=== PATIENT | male | born 1960 | race African-American/Black ===

== ENCOUNTER 2019-06-18 12:14 | Inpatient (IN) | payer BC ==
[2019-06-18 12:53] VITALS: BMI 24.1
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
[2019-06-18] MEDS ORDERED: hydrOXYzine PAMOATE 25 MG CAPSULE (FP) PO PRN (14:16)
[2019-06-18] MEDS ORDERED: chlordiazePOXIDE HCL 10 MG CAPSULE PO PRN (14:16)
[2019-06-18] MEDS ORDERED: BISMUTH SUBSALICYLATE 524 MG/30 ML UD PO PRN (14:16)
[2019-06-18] MEDS ORDERED: ACETAMINOPHEN 325 MG TABLET (FP) PO PRN ×2 (14:16)
[2019-06-18] MEDS ORDERED: MELATONIN 5 MG TABLETS PO PRN (14:16)
[2019-06-18] MEDS ORDERED: MAGNESIUM CITRATE 300 ML BOTTLE PO PRN (14:16)
[2019-06-18] MEDS ORDERED: IBUPROFEN 400 MG TABLET (FP) PO PRN (14:16)
[2019-06-18] MEDS ORDERED: MENTHOL/PHENOL 1 EACH UD MM PRN (14:16)
[2019-06-18] MEDS ORDERED: chlordiazePOXIDE HCL 25 MG CAPSULE PO ONE (14:16)
[2019-06-18] MEDS ORDERED: METHOCARBAMOL 500 MG TABLET PO PRN (14:16)
[2019-06-18] MEDS ORDERED: MAG HYDROX/AL HYDROX/SIMETH 30 ML UNIT-DOSE CUP PO PRN (14:16)
[2019-06-18] MEDS ORDERED: MAGNESIUM HYDROX 2400MG/30ML ORAL SUSPENSION 30 ML CUP PO PRN (14:16)
[2019-06-18 17:32] LABS: HEMATOCRIT 38.4 % (35.4-49); HEMOGLOBIN 12.6 GM/dL (11.7-16.9); MCH 32.8 pg (25.7-33.7); MCHC 32.8 g/dl (32.0-35.9); MEAN CELL VOLUME 99.9 fl (80-96); RBC 3.85 M/mm3 (4.00-5.60); RDW 13.1 % (11.9-15.9); WHITE BLOOD COUNT 4.5 K/mm3 (4.0-10.0)
[2019-06-18 17:37] LABS: ALBUMIN 3.5 g/dl (3.4-5.0); BILIRUBIN,TOTAL 1.4 mg/dL (0.2-1); CALCIUM 8.4 mg/dL (8.5-10.1); CREATININE 0.9 mg/dL (0.55-1.3); POTASSIUM 3.4 mmol/L (3.5-5.1); TOT PROT 7.5 g/dl (6.4-8.2)
[2019-06-18 18:23] LABS: MEAN PLT VOLUME 9.3 fl (7.5-11.1)
[2019-06-18 18:24] LABS: PLATELET COUNT 136 K/MM3 (134-434)
[2019-06-18] MEDS: THIAMINE HCL 100 MG TABLET (FP) PO SCH (22:31)
[2019-06-18] MEDS: chlordiazePOXIDE HCL 25 MG CAPSULE PO SCH (22:31)
[2019-06-19] MEDS: chlordiazePOXIDE HCL 25 MG CAPSULE PO SCH ×3 (05:57→22:19)
[2019-06-19] MEDS: PRENATAL VITAMINS W/ FOLIC ACID TABLET (FP) PO SCH (10:35)
--- NOTE | 2019-06-19 12:11 | PN ---
S CIWA - CIWA Score Nausea/Vomitin-No Nausea/No Vomiting Muscle Tremors: 3 Anxiety: 3 Agitation: 3 Paroxysmal Sweats: 2 Orientation: 0-Oriented Tacttile Disturbances: 0-None Auditory Disturbances: 0-None Visual Disturbances: 0-None Headache: 0-None Present CIWA-Ar Total Score: 11 BHS Progress Note (SOAP) Subjective: sweats mild shakes interrupted sleep irritable Objective: 06/19/19 12:10 Vital Signs Temperature 97.7 F 06/19/19 09:45 Pulse Rate 112 H 06/19/19 09:45 Respiratory Rate 19 06/19/19 09:45 Blood Pressure 124/92 06/19/19 09:45 O2 Sat by Pulse Oximetry (%) Laboratory Tests 06/18/19 06/18/19 06/18/19 14:25 14:25 14:25 WBC 4.5 RBC 3.85 L Hgb 12.6 Hct 38.4 MCV 99.9 H MCH 32.8 MCHC 32.8 RDW 13.1 Plt Count 136 MPV 9.3 Sodium 136 Potassium 3.4 L Chloride 104 Carbon Dioxide 22 Anion Gap 9 BUN 10.0 Creatinine 0.9 Est GFR (CKD-EPI)AfAm 108.73 Est GFR (CKD-EPI)NonAf 93.82 Random Glucose 186 H Calcium 8.4 L Total Bilirubin 1.4 H AST 369 H ALT 184 H Alkaline Phosphatase 87 Total Protein 7.5 Albumin 3.5 RPR Titer Nonreactive labs noted mild hypokalemia elevated liver enzymes repeat labs aaox3 ambulating no acute distress Assessment: 06/19/19 12:11 withdrawals Plan: continue detox increase fluids repeat labs kdur [id number] x one d/c tylenol
[2019-06-19] MEDS ORDERED: POTASSIUM CHLORIDE TABS 20 MEQ TABLET.ER (FP) PO ONE (12:30)
[2019-06-19] MEDS: THIAMINE HCL 100 MG TABLET (FP) PO SCH (22:19)
[2019-06-20] MEDS: chlordiazePOXIDE 5 MG CAPSULE PO SCH ×3 (05:17→21:35)
[2019-06-20] MEDS: PRENATAL VITAMINS W/ FOLIC ACID TABLET (FP) PO SCH (10:36)
--- NOTE | 2019-06-20 13:16 | PN ---
S CIWA - CIWA Score Nausea/Vomitin-Mild Nausea/No Vomiting Muscle Tremors: 3 Anxiety: 2 Agitation: 1-Slight > Activity Paroxysmal Sweats: 2 Orientation: 0-Oriented Tacttile Disturbances: 1-Very Mild Itch/Numbness Auditory Disturbances: 0-None Visual Disturbances: 0-None Headache: 0-None Present CIWA-Ar Total Score: 10 BHS Progress Note (SOAP) Subjective: shakes, but feeling better, , mild sweats Objective: 06/20/19 13:26 Vital Signs Temperature 97.8 F 06/20/19 13:10 Pulse Rate 109 H 06/20/19 13:10 Respiratory Rate 18 06/20/19 13:10 Blood Pressure 128/87 06/20/19 13:10 O2 Sat by Pulse Oximetry (%) Vital Signs Temperature 97.8 F 06/20/19 13:10 Pulse Rate 109 H 06/20/19 13:10 Respiratory Rate 18 06/20/19 13:10 Blood Pressure 128/87 06/20/19 13:10 O2 Sat by Pulse Oximetry (%) Laboratory Tests 06/18/19 06/18/19 06/18/19 14:25 14:25 14:25 WBC 4.5 RBC 3.85 L Hgb 12.6 Hct 38.4 MCV 99.9 H MCH 32.8 MCHC 32.8 RDW 13.1 Plt Count 136 MPV 9.3 Sodium 136 Potassium 3.4 L Chloride 104 Carbon Dioxide 22 Anion Gap 9 BUN 10.0 Creatinine 0.9 Est GFR (CKD-EPI)AfAm 108.73 Est GFR (CKD-EPI)NonAf 93.82 Random Glucose 186 H Calcium 8.4 L Total Bilirubin 1.4 H AST 369 H ALT 184 H Alkaline Phosphatase 87 Total Protein 7.5 Albumin 3.5 RPR Titer Nonreactive pt aox3 in nad ambulating slow shuffle but steady, states this is an improvement from DOA. mild tremor 06/20/19 13:29 Assessment: 06/20/19 13:28 withdrawal sx's Plan: cont. detox increase fluids
[2019-06-20] MEDS: THIAMINE HCL 100 MG TABLET (FP) PO SCH (21:35)
[2019-06-21] MEDS ORDERED: chlordiazePOXIDE HCL 10 MG CAPSULE PO PRN
[2019-06-21] MEDS: chlordiazePOXIDE HCL 10 MG CAPSULE PO SCH ×3 (06:14→21:34)
[2019-06-21 10:19] LABS: BASO % 0.4 % (0-2.0); EOS % 1.1 % (0-4.5); HEMATOCRIT 36.9 % (35.4-49); HEMOGLOBIN 12.5 GM/dL (11.7-16.9); LYMPH % 36.1 % (8-40); MCH 33.6 pg (25.7-33.7); MEAN CELL VOLUME 98.9 fl (80-96); MEAN PLT VOLUME 10.5 fl (7.5-11.1); MONO % 6.7 % (3.8-10.2); NEUT % 55.7 % (42.8-82.8); PLATELET COUNT 105 K/MM3 (134-434); RBC 3.73 M/mm3 (4.00-5.60); WHITE BLOOD COUNT 6.2 K/mm3 (4.0-10.0)
[2019-06-21 10:21] LABS: BILIRUBIN,TOTAL 0.4 mg/dL (0.2-1); BLOOD UREA NITROGEN 13.6 mg/dL (7-18); CALCIUM 8.6 mg/dL (8.5-10.1); CREATININE 0.7 mg/dL (0.55-1.3); POTASSIUM 3.8 mmol/L (3.5-5.1); TOT PROT 6.4 g/dl (6.4-8.2)
[2019-06-21] MEDS: PRENATAL VITAMINS W/ FOLIC ACID TABLET (FP) PO SCH (10:35)
--- NOTE | 2019-06-21 12:48 | PN ---
S CIWA - CIWA Score Nausea/Vomitin-No Nausea/No Vomiting Muscle Tremors: 2 Anxiety: 1-Mildly Anxious Agitation: 2 Paroxysmal Sweats: No Perspiration Orientation: 0-Oriented Tacttile Disturbances: 0-None Auditory Disturbances: 0-None Visual Disturbances: 0-None Headache: 0-None Present CIWA-Ar Total Score: 5 BHS Progress Note (SOAP) Subjective: feeling better anxiety Objective: 06/21/19 12:47 Vital Signs Temperature 98.1 F 06/21/19 09:11 Pulse Rate 85 06/21/19 09:11 Respiratory Rate 18 06/21/19 09:11 Blood Pressure 131/95 06/21/19 09:11 O2 Sat by Pulse Oximetry (%) aaox3 ambulating no acute distress Assessment: 06/21/19 12:48 mild withdrawals Plan: continue detox d/c in am
[2019-06-21] MEDS: THIAMINE HCL 100 MG TABLET (FP) PO SCH (21:34)
[2019-06-22] MEDS ORDERED: chlordiazePOXIDE HCL 10 MG CAPSULE PO ONE (05:00)
[2019-06-22 08:01] VITALS: TEMP 97.9
[2019-06-22 09:18] VITALS: BP 119/76; PULSE 89
[2019-06-22] MEDS: PRENATAL VITAMINS W/ FOLIC ACID TABLET (FP) PO SCH (10:21)
--- NOTE | 2019-06-22 18:20 | DS ---
[facility] Detox Discharge Summary Admission Date: 06/18/19 Discharge Date: 06/22/19 - History Present History: Alcohol Dependence Additional Comments: Patient completed detox successfully and discharged safely. Instructed to follow up with PCP within 1 week. Pertinent Past History: Hepatitis C Alcohol dependence - Physical Exam Results Vital Signs: Vital Signs Temperature 97.9 F 06/22/19 09:18 Pulse Rate 89 06/22/19 09:18 Respiratory Rate 16 06/22/19 09:18 Blood Pressure 119/76 06/22/19 09:18 O2 Sat by Pulse Oximetry (%) Pertinent Admission Physical Exam Findings: Withdrawal sxs Laboratory Tests 06/18/19 06/18/19 06/18/19 14:25 14:25 14:25 WBC 4.5 RBC 3.85 L Hgb 12.6 Hct 38.4 MCV 99.9 H MCH 32.8 MCHC 32.8 RDW 13.1 Plt Count 136 MPV 9.3 Absolute Neuts (auto) Neutrophils % Lymphocytes % Monocytes % Eosinophils % Basophils % Nucleated RBC % Sodium 136 Potassium 3.4 L Chloride 104 Carbon Dioxide 22 Anion Gap 9 BUN 10.0 Creatinine 0.9 Est GFR (CKD-EPI)AfAm 108.73 Est GFR (CKD-EPI)NonAf 93.82 Random Glucose 186 H Calcium 8.4 L Total Bilirubin 1.4 H AST 369 H ALT 184 H Alkaline Phosphatase 87 Total Protein 7.5 Albumin 3.5 RPR Titer Nonreactive 06/21/19 06/21/19 08:00 08:00 WBC 6.2 RBC 3.73 L Hgb 12.5 Hct 36.9 MCV 98.9 H MCH 33.6 MCHC 34.0 RDW 13.0 Plt Count 105 L D MPV 10.5 D Absolute Neuts (auto) 3.5 Neutrophils % 55.7 Lymphocytes % 36.1 Monocytes % 6.7 Eosinophils % 1.1 Basophils % 0.4 Nucleated RBC % 1 H Sodium 137 Potassium 3.8 Chloride 104 Carbon Dioxide 25 Anion Gap 8 BUN 13.6 Creatinine 0.7 Est GFR (CKD-EPI)AfAm 120.56 Est GFR (CKD-EPI)NonAf 104.02 Random Glucose 173 H Calcium 8.6 Total Bilirubin 0.4 AST 75 H ALT 117 H Alkaline Phosphatase 73 Total Protein 6.4 Albumin 3.0 L RPR Titer Labs reviewed: noted with hyperglycemia and elevated LFTs (discussed lab results with patient who denies DM, elevated LFTs most likely from alcohol dependence and hepatitis C; patient instructed to follow up with PCP re: abnormal lab results in one week) - Treatment Hospital Course: Detox Protocol Followed, Detoxed Safely, Responded well, Discharged Condition Good - Medication Discharge Medications: Ambulatory Orders NK [No Known Home Medication] 06/18/19 - Diagnosis (1) Alcohol use disorder Status: Acute (2) Hepatitis C Status: Chronic (3) Hyperglycemia Status: Acute (4) Elevated LFTs Status: Acute - AMA Did Patient Leave Against Medical Advice: No (Follow up with PCP in one week)
== END 2019-06-22 11:42 | disposition home or self-care (01) | DRG 775 ==
LOC: YASAS 12:14 → Y6N 14:57
PROVIDERS: ADMIT Allergy & Immunology; ATTEND Allergy & Immunology
PROC: HZ2ZZZZ Detoxification Services for Substance Abuse Treatment (ICD-10-PCS; principal; 2019-06-18)
DX: F10.230 Alcohol dependence with withdrawal, uncomplicated (principal); F17.210 Nicotine dependence, cigarettes, uncomplicated; E87.6 Hypokalemia; B18.2 Chronic viral hepatitis C; R73.9 Hyperglycemia, unspecified; R94.5 Abnormal results of liver function studies
CPT/HCPCS: 36415; 80053; 85025; 85027; 86593

== ENCOUNTER 2020-04-06 11:03 | Inpatient (IN) | payer BC ==
--- NOTE | 2020-04-06 11:20 | BHS.RME ---
Substance Use & Tx History - Substance Use History Alcohol Substance amount: 1/2 pint Eliezer Vodka and 3 beers Frequency of use: Daily Substance route: Oral Date of Last Use: 04/05/20 Nicotine Substance amount: 4 ciggs Frequency of use: Daily Substance route: Smoking Date of Last Use: 04/05/20 Physical/Psych/Mental Status - Behavior General Behavior: Increased activity (restlessness, agitation) Eye Contact: Normal Other Behaviors: Stereotypes - Cooperativeness Cooperativeness: Cooperative - Thinking Thought Processes: Tight, Logical, Goal Directed - Physical Health Problems Is patient presently having any pain?: No Does patient presently have any injuries (include location): No Does patient currently have a fever: No Is patient : No CIWA Nausea/Vomitin-No Nausea/No Vomiting (got one dose librium at [facility]) Muscle Tremors: 2 Anxiety: 1-Mildly Anxious Agitation: 1-Slight > Activity Paroxysmal Sweats: 1-Minimal Palms Moist Orientation: 0-Oriented Tacttile Disturbances: 0-None Auditory Disturbances: 0-None Visual Disturbances: 0-None Headache: 0-None Present CIWA-Ar Total Score: 5
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
[2020-04-06] MEDS ORDERED: ACETAMINOPHEN 325 MG TABLET (FP) PO PRN ×2 (11:58)
[2020-04-06] MEDS ORDERED: MENTHOL/PHENOL 1 EACH UD MM PRN (11:58)
[2020-04-06] MEDS ORDERED: BISMUTH SUBSALICYLATE 262 MG/15 ML BTL PO PRN (11:58)
[2020-04-06] MEDS ORDERED: MAG HYDROX/AL HYDROX/SIMETH 30 ML UNIT-DOSE CUP PO PRN (11:58)
[2020-04-06] MEDS ORDERED: METHOCARBAMOL 500 MG TABLET PO PRN (11:58)
[2020-04-06] MEDS ORDERED: chlordiazePOXIDE HCL 25 MG CAPSULE PO PRN (11:58)
[2020-04-06] MEDS ORDERED: IBUPROFEN 400 MG TABLET (FP) PO PRN (11:58)
[2020-04-06] MEDS ORDERED: MAGNESIUM CITRATE 300 ML BOTTLE PO PRN (11:58)
[2020-04-06] MEDS ORDERED: NICOTINE POLACRILEX 2 MG GUM BUC PRN (11:58)
[2020-04-06] MEDS ORDERED: ONDANSETRON *ODT* 4 MG TABLET SL PRN (11:58)
[2020-04-06] MEDS ORDERED: MAGNESIUM HYDROX 2400MG/30ML ORAL SUSPENSION 30 ML CUP PO PRN (11:58)
[2020-04-06] MEDS ORDERED: chlordiazePOXIDE HCL 25 MG CAPSULE PO ONE (12:06)
[2020-04-06 12:11] VITALS: BMI 26.6
[2020-04-06] MEDS ORDERED: TUBERCULIN PPD 5 TU/0.1ML VIAL ID ONE ×2 (12:44→13:07)
[2020-04-06] MEDS: hydrOXYzine PAMOATE 25 MG CAPSULE (FP) PO SCH ×3 (13:00→22:55)
[2020-04-06 15:25] LABS: HEMOGLOBIN 13.6 GM/dL (11.7-16.9); MCH 31.5 pg (25.7-33.7); MCHC 32.5 g/dl (32.0-35.9); MEAN PLT VOLUME 9.3 fl (7.5-11.1); PLATELET COUNT 76 K/MM3 (134-434); RBC 4.33 M/mm3 (4.00-5.60); RDW 13.3 % (11.9-15.9)
[2020-04-06 15:37] LABS: ALBUMIN 4.3 g/dl (3.4-5.0); BILIRUBIN,TOTAL 1.7 mg/dL (0.2-1); BLOOD UREA NITROGEN 9.6 mg/dL (7-18); POTASSIUM 3.7 mmol/L (3.5-5.1); TOT PROT 8.8 g/dl (6.4-8.2)
[2020-04-06] MEDS: chlordiazePOXIDE HCL 25 MG CAPSULE PO SCH ×2 (17:24→22:45)
[2020-04-06] MEDS: THIAMINE HCL 100 MG TABLET (FP) PO SCH (22:45)
[2020-04-06] MEDS: MELATONIN 5 MG TABLETS PO SCH (22:54)
[2020-04-07] MEDS: hydrOXYzine PAMOATE 25 MG CAPSULE (FP) PO SCH ×5 (06:51→22:50)
[2020-04-07] MEDS: chlordiazePOXIDE HCL 25 MG CAPSULE PO SCH ×4 (06:51→22:50)
[2020-04-07] MEDS: PRENATAL VITAMINS W/ FOLIC ACID TABLET (FP) PO SCH (10:02)
[2020-04-07] MEDS: NICOTINE 7 MG/24 HOURS TOPICAL PATCH TD SCH (10:02)
--- NOTE | 2020-04-07 10:43 | PN ---
S CIWA - CIWA Score Nausea/Vomitin-No Nausea/No Vomiting Muscle Tremors: 4-Moderate,w/Arms Extend Anxiety: 4-Mod. Anxious/Guarded Agitation: 3 Paroxysmal Sweats: 1-Minimal Palms Moist Orientation: 0-Oriented Tacttile Disturbances: 0-None Auditory Disturbances: 0-None Visual Disturbances: 0-None Headache: 0-None Present CIWA-Ar Total Score: 12 BHS Progress Note (SOAP) Subjective: Pt is a 59 y/o male admitted to detox for alcohol withdrawal sx c/o anxiety tremors fatigue, unsteady gait due to tremors(reports he is on the go when he is drinking but unstable when he is not drinking). Objective: 04/07/20 10:40 Vital Signs - 24 hr 04/06/20 04/06/20 04/06/20 12:08 12:55 16:46 Temperature 98.8 F 98.4 F 97.8 F Pulse Rate 67 105 H 98 H Respiratory 16 16 17 Rate Blood Pressure 136/80 136/86 134/76 O2 Sat by Pulse 96 Oximetry (%) 04/06/20 04/07/20 20:44 05:55 Temperature 98.2 F 98.7 F Pulse Rate 108 H 91 H Respiratory 20 20 Rate Blood Pressure 141/91 143/82 O2 Sat by Pulse 96 96 Oximetry (%) Laboratory Tests 04/06/20 04/06/20 04/06/20 12:05 12:05 12:05 WBC 6.0 RBC 4.33 Hgb 13.6 Hct 42.0 MCV 97.0 H MCH 31.5 MCHC 32.5 RDW 13.3 Plt Count 76 L D MPV 9.3 D Sodium 138 Potassium 3.7 Chloride 101 Carbon Dioxide 27 Anion Gap 10 BUN 9.6 Creatinine 1.0 Est GFR (CKD-EPI)AfAm 95.06 Est GFR (CKD-EPI)NonAf 82.02 Random Glucose 184 H Calcium 9.0 Total Bilirubin 1.7 H AST 71 H ALT 35 Alkaline Phosphatase 61 Total Protein 8.8 H Albumin 4.3 Syphilis Serology Non-reactive COVID-19 ([facility]EFRI) HIV Ag/Ab Combo Qual 04/06/20 04/06/20 12:05 12:30 WBC RBC Hgb Hct MCV MCH MCHC RDW Plt Count MPV Sodium Potassium Chloride Carbon Dioxide Anion Gap BUN Creatinine Est GFR (CKD-EPI)AfAm Est GFR (CKD-EPI)NonAf Random Glucose Calcium Total Bilirubin AST ALT Alkaline Phosphatase Total Protein Albumin Syphilis Serology COVID-19 (YEFRI) Not detected HIV Ag/Ab Combo Qual Negative Random glc 184 mg/dl covid-19 not detected alert o x 3 nad pt in bed but communicating needs coherently Assessment: 04/07/20 10:42 withdrawal sx Plan: cont detox increase po fluids maintain safety
[2020-04-07 19:58] LABS: PH,URINE >= 9.0 (5.0-8.0); URINE APPEARANCE Error; URINE BILIRUBIN NEGATIVE (NEGATIVE); URINE COLOR YELLOW; URINE GLUCOSE (UA) NEGATIVE (NEGATIVE); URINE KETONE NEGATIVE (NEGATIVE); URINE LEUK ESTERASE NEGATIVE (NEGATIVE); URINE NITRITE NEGATIVE (NEGATIVE); URINE PROTEIN NEGATIVE (NEGATIVE)
[2020-04-07] MEDS: THIAMINE HCL 100 MG TABLET (FP) PO SCH (22:50)
[2020-04-07] MEDS: MELATONIN 5 MG TABLETS PO SCH (22:50)
[2020-04-08] MEDS: chlordiazePOXIDE HCL 25 MG CAPSULE PO SCH ×2 (06:10→10:22)
[2020-04-08] MEDS: hydrOXYzine PAMOATE 25 MG CAPSULE (FP) PO SCH ×3 (06:10→13:43)
[2020-04-08] MEDS: NICOTINE 7 MG/24 HOURS TOPICAL PATCH TD SCH (10:21)
[2020-04-08] MEDS: PRENATAL VITAMINS W/ FOLIC ACID TABLET (FP) PO SCH (10:21)
[2020-04-08 11:09] VITALS: BP 153/90; PULSE 103; TEMP 98.6
--- NOTE | 2020-04-08 13:23 | PN ---
S CIWA - CIWA Score Nausea/Vomitin-No Nausea/No Vomiting Muscle Tremors: 4-Moderate,w/Arms Extend Anxiety: 4-Mod. Anxious/Guarded Agitation: 0-Normal Activity Paroxysmal Sweats: No Perspiration Orientation: 0-Oriented Tacttile Disturbances: 0-None Auditory Disturbances: 0-None Visual Disturbances: 0-None Headache: 0-None Present CIWA-Ar Total Score: 8 BHS Progress Note (SOAP) Subjective: Pt reports decreased tremors and states the librium helping with the shakes. other c/o slight anxiety. Objective: 04/08/20 13:20 Vital Signs - 24 hr 04/07/20 04/07/20 04/08/20 17:17 20:29 06:55 Temperature 96.9 F L 98.2 F 97.5 F L Pulse Rate 87 90 91 H Respiratory 18 18 18 Rate Blood Pressure 133/81 131/76 140/75 O2 Sat by Pulse 97 97 Oximetry (%) 04/08/20 09:51 Temperature 98.6 F Pulse Rate 103 H Respiratory 16 Rate Blood Pressure 153/90 O2 Sat by Pulse 98 Oximetry (%) Laboratory Tests 04/06/20 04/06/20 04/06/20 12:05 12:05 12:05 WBC 6.0 RBC 4.33 Hgb 13.6 Hct 42.0 MCV 97.0 H MCH 31.5 MCHC 32.5 RDW 13.3 Plt Count 76 L D MPV 9.3 D Sodium 138 Potassium 3.7 Chloride 101 Carbon Dioxide 27 Anion Gap 10 BUN 9.6 Creatinine 1.0 Est GFR (CKD-EPI)AfAm 95.06 Est GFR (CKD-EPI)NonAf 82.02 Random Glucose 184 H Calcium 9.0 Total Bilirubin 1.7 H AST 71 H ALT 35 Alkaline Phosphatase 61 Total Protein 8.8 H Albumin 4.3 Urine Color Urine Appearance Urine pH Ur Specific [place] Urine Protein Urine Glucose (UA) Urine Ketones Urine Blood Urine Nitrite Urine Bilirubin Urine Urobilinogen Ur Leukocyte Esterase Syphilis Serology Non-reactive COVID-19 ([facility]EFRI) HIV Ag/Ab Combo Qual 04/06/20 04/06/20 04/07/20 12:05 12:30 15:10 WBC RBC Hgb Hct MCV MCH MCHC RDW Plt Count MPV Sodium Potassium Chloride Carbon Dioxide Anion Gap BUN Creatinine Est GFR (CKD-EPI)AfAm Est GFR (CKD-EPI)NonAf Random Glucose Calcium Total Bilirubin AST ALT Alkaline Phosphatase Total Protein Albumin Urine Color Yellow Urine Appearance Error Urine pH >= 9.0 H Ur Specific [place] 1.013 Urine Protein Negative Urine Glucose (UA) Negative Urine Ketones Negative Urine Blood Negative Urine Nitrite Negative Urine Bilirubin Negative Urine Urobilinogen 1.0 Ur Leukocyte Esterase Negative Syphilis Serology COVID-19 ([facility]EFRI) Not detected HIV Ag/Ab Combo Qual Negative Labs noted Random Glc 184 mg/dl Alert o x 3 nad oob ambulating with steady gate with cane. 04/08/20 13:24 Assessment: 04/08/20 13:21 withdrawal sx Plan: cont detox increase po fluids maintain safety Fasting BGM x 2 days r/o Hyperglycemia
--- NOTE | 2020-04-08 15:46 | DS ---
[facility] Detox Discharge Summary Admission Date: 04/06/20 Discharge Date: 04/08/20 - History Present History: Alcohol Dependence, Cannabis Dependence Additional Comments: Pt declined to continue with detox for personal reasons. Pt became very abrasive and cursing at staff with the "F" word and threatening the nurse saying "If i catch you outside....." and flinging/slamming his walking cane on surfaces because he was asked the reason for leaving treatment. Pt continue to curse out when this comic book writer went to see him. Pertinent Past History: Hep C - Physical Exam Results Vital Signs: Vital Signs Temperature 98.6 F 04/08/20 09:51 Pulse Rate 103 H 04/08/20 09:51 Respiratory Rate 16 04/08/20 09:51 Blood Pressure 153/90 04/08/20 09:51 O2 Sat by Pulse Oximetry (%) 98 04/08/20 09:51 Pertinent Admission Physical Exam Findings: Laboratory Tests 04/06/20 04/06/20 04/06/20 12:05 12:05 12:05 WBC 6.0 RBC 4.33 Hgb 13.6 Hct 42.0 MCV 97.0 H MCH 31.5 MCHC 32.5 RDW 13.3 Plt Count 76 L D MPV 9.3 D Sodium 138 Potassium 3.7 Chloride 101 Carbon Dioxide 27 Anion Gap 10 BUN 9.6 Creatinine 1.0 Est GFR (CKD-EPI)AfAm 95.06 Est GFR (CKD-EPI)NonAf 82.02 Random Glucose 184 H Calcium 9.0 Total Bilirubin 1.7 H AST 71 H ALT 35 Alkaline Phosphatase 61 Total Protein 8.8 H Albumin 4.3 Urine Color Urine Appearance Urine pH Ur Specific [place] Urine Protein Urine Glucose (UA) Urine Ketones Urine Blood Urine Nitrite Urine Bilirubin Urine Urobilinogen Ur Leukocyte Esterase Syphilis Serology Non-reactive COVID-19 ([facility]) HIV Ag/Ab Combo Qual 04/06/20 04/06/20 04/07/20 12:05 12:30 15:10 WBC RBC Hgb Hct MCV MCH MCHC RDW Plt Count MPV Sodium Potassium Chloride Carbon Dioxide Anion Gap BUN Creatinine Est GFR (CKD-EPI)AfAm Est GFR (CKD-EPI)NonAf Random Glucose Calcium Total Bilirubin AST ALT Alkaline Phosphatase Total Protein Albumin Urine Color Yellow Urine Appearance Error Urine pH >= 9.0 H Ur Specific [place] 1.013 Urine Protein Negative Urine Glucose (UA) Negative Urine Ketones Negative Urine Blood Negative Urine Nitrite Negative Urine Bilirubin Negative Urine Urobilinogen 1.0 Ur Leukocyte Esterase Negative Syphilis Serology COVID-19 (YEFRI) Not detected HIV Ag/Ab Combo Qual Negative - Treatment Hospital Course: Discharged Condition Good, Rehab Referral Accepted Patient has Accepted a Re[facility] Referral to: [facility] - Medication Discharge Medications: Ambulatory Orders NK [No Known Home Medication] 06/18/19 - Diagnosis (1) Alcohol dependence with withdrawal, uncomplicated Current Visit: Yes Status: Acute (2) Nicotine dependence Current Visit: Yes Status: Acute Qualifiers: Nicotine product type: cigarettes Substance use status: in withdrawal Qualified Code(s): F17.213 - Nicotine dependence, cigarettes, with withdrawal (3) Hepatitis C Current Visit: Yes Status: Chronic (4) Homeless Current Visit: Yes Status: Chronic - AMA Did Patient Leave Against Medical Advice: Yes
[2020-04-09] MEDS ORDERED: chlordiazePOXIDE HCL 10 MG CAPSULE PO PRN
[2020-04-09] MEDS ORDERED: chlordiazePOXIDE HCL 10 MG CAPSULE PO SCH (05:00)
[2020-04-10] MEDS ORDERED: chlordiazePOXIDE HCL 10 MG CAPSULE PO SCH (05:00)
[2020-04-11] MEDS ORDERED: chlordiazePOXIDE HCL 10 MG CAPSULE PO ONE (05:00)
== END 2020-04-08 15:30 | disposition left against medical advice (07) | DRG 770 ==
LOC: YASAS 11:03 → Y5N DETOX 12:21
PROVIDERS: ADMIT Allergy & Immunology; ATTEND Allergy & Immunology
PROC: HZ2ZZZZ Detoxification Services for Substance Abuse Treatment (ICD-10-PCS; principal; 2020-04-06)
DX: F10.230 Alcohol dependence with withdrawal, uncomplicated (principal); F12.10 Cannabis abuse, uncomplicated; F17.213 Nicotine dependence, cigarettes, with withdrawal; F19.20 Other psychoactive substance dependence, uncomplicated; H11.31 Conjunctival hemorrhage, right eye; Z99.89 Dependence on other enabling machines and devices; Z59.0 Homelessness
CPT/HCPCS: 36415; 80053; 81003; 85027; 86780; 87389; U0003